=== PATIENT | male | born 1970 | race Caucasian/White ===

== ENCOUNTER → 2017-09-15 | Outpatient (CLI) | payer OTHER ==
[~2017-09-15] MED LIST: PANT40TA PO; TYL325X PO
--- NOTE | 2017-09-15 12:18 | DIAGNOSTIC IMAGING REPORT ---
L HUMERUS MIN 2 VIEWS ROUTINE, L SHOULDER MIN 2 VIEWS ROUTINE HISTORY: 47 years-old Male M25.512 Left shoulder [id number] acute left arm and left shoulder pain COMPARISON: Chest radiograph 05/18/2015 TECHNIQUE: 2 views of the left humerus and 3 views of the left shoulder FINDINGS: SHOULDER: Mild marginal spurring and subchondral sclerosis about the AC joint. No significant glenohumeral degenerative changes. There is no acute fracture or dislocation. Soft tissues and imaged lung guzman are unremarkable. HUMERUS: No acute fracture or dislocation. Soft tissues are unremarkable. IMPRESSION: 1. No acute fracture or dislocation. 2. Mild AC joint degenerative changes. The above report was generated using voice recognition software. It may contain grammatical, syntax or spelling errors. Electronically signed by: Xavi Cueva M.D. 09/15/2017 12:17 PM Dictated Date/Time: 09/15/2017 12:14 PM
--- NOTE | 2017-09-15 12:18 | DIAGNOSTIC IMAGING REPORT ---
L HUMERUS MIN 2 VIEWS ROUTINE, L SHOULDER MIN 2 VIEWS ROUTINE HISTORY: 47 years-old Male M25.512 Left shoulder [id number] acute left arm and left shoulder pain COMPARISON: Chest radiograph 05/18/2015 TECHNIQUE: 2 views of the left humerus and 3 views of the left shoulder FINDINGS: SHOULDER: Mild marginal spurring and subchondral sclerosis about the AC joint. No significant glenohumeral degenerative changes. There is no acute fracture or dislocation. Soft tissues and imaged lung guzman are unremarkable. HUMERUS: No acute fracture or dislocation. Soft tissues are unremarkable. IMPRESSION: 1. No acute fracture or dislocation. 2. Mild AC joint degenerative changes. The above report was generated using voice recognition software. It may contain grammatical, syntax or spelling errors. Electronically signed by: Xavi Cueva M.D. 09/15/2017 12:17 PM Dictated Date/Time: 09/15/2017 12:14 PM
== END | disposition home or self-care (01) ==
LOC: C.RAD1850 12:04
PROVIDERS: ATTEND Internal Medicine
DX: M25.512 Pain in left shoulder (principal); M89.8X1 Other specified disorders of bone, shoulder